=== PATIENT | male | born 1955 | race Caucasian/White ===

== ENCOUNTER 2019-02-09 15:17 | Emergency (ER) | payer BC ==
[~2019-02-09] VITALS: Ht 160 cm; Wt 63.2 kg
[~2019-02-09 15:17] MED LIST: ASPI-1265 PO; ATOR20TA66 PO; BENA20TA76 PO; METO25TA6 PO; NITR0.4T51 SL; TICA90TA PO
[2019-02-09] MEDS ORDERED: morphine 4 MG/ML inj SYRINge IV PRN (15:30)
[2019-02-09] MEDS ORDERED: normal saline 1000ML IV soln IVB ONE ×2 (15:30→15:55)
[2019-02-09] MEDS ORDERED: ondansetron/PF 4mg/2ml inj IV ONE (15:30)
[2019-02-09] MEDS ORDERED: aspirin 81mg tab.chew PO ONE (15:50)
[2019-02-09 15:55] LABS: HEMOGLOBIN 14.3 g/dl (14.0-17.9); MEAN CORPUSCULAR HEMOGLOBIN 34.7 PG (27.0-31.0); RED BLOOD COUNT 4.13 X10'6 (4.70-6.10)
[2019-02-09 15:56] LABS: HEMATOCRIT 41.2 % (42.0-52.0); MEAN CORPUSCULAR HGB CONC 34.8 g/dL (33.0-36.5); MEAN CORPUSCULAR VOLUME 99.8 FL (78-98); MEAN PLATELET VOLUME 7.3 FL (7.4-10.4); PLATELET COUNT 273 X10'3 (140-440); RED CELL DISTRIBUTION WIDTH 14.7 % (11.5-14.5); WHITE BLOOD COUNT 6.4 X10'3 (4.5-11.0)
[2019-02-09 16:08] LABS: PARTIAL THROMBOPLASTIN TIME 25 SECONDS (22-32)
[2019-02-09 16:13] LABS: ALANINE AMINOTRANSFERASE 92 U/L (12-78); ALBUMIN 3.5 G/DL (3.4-5.0); ALKALINE PHOSPHATASE 122 IU/L (46-116); ANION GAP 8 (8-16); ASPARTATE AMINO TRANSFERASE 86 U/L (10-37); BILIRUBIN,TOTAL 0.3 MG/DL (0.1-1.0); BLOOD UREA NITROGEN 3 MG/DL (7-18); CALCIUM 8.2 MG/DL (8.5-10.1); CHLORIDE 109 MMOL/L (99-107); CREATININE 0.75 MG/DL (0.60-1.10); GLUCOSE 84 MG/DL (70-104); POTASSIUM 3.7 MMOL/L (3.5-5.1); SODIUM 147 MMOL/L (135-145); TOTAL CARBON DIOXIDE 30.5 MMOL/L (24-32); TOTAL PROTEIN 7.1 G/DL (6.4-8.2); eGFR > 90 ML/MIN
[2019-02-09 16:17] LABS: LIPASE 282 U/L (73-393)
[2019-02-09 16:44] LABS: PLATELET ESTIMATE NORMAL; TOTAL CELLS COUNTED 100
[2019-02-09 18:16] LABS: CLARITY,URINE CLEAR (Clear); COLOR,URINE YELLOW (Yellow); GLUCOSE, URINE NEGATIVE (Neg); KETONES,URINE NEGATIVE (Neg); LEUKOCYTE ESTERASE ,URINE NEGATIVE (Neg); NITRITES, URINE NEGATIVE (Neg); OCCULT BLOOD,URINE NEGATIVE (Neg); PROTEIN,URINE NEGATIVE (Neg); UA COLLECTION TYPE VOIDED; UROBILINOGEN,URINE 0.2 E.U/dL (0.2-1.0)
[2019-02-09 18:22] VITALS: BP 174/106
== END 2019-02-09 19:27 | disposition home or self-care (01) ==
LOC: ER 15:17
DX: R07.89 Other chest pain (principal); I25.10 Atherosclerotic heart disease of native coronary artery without angina pectoris; E78.00 Pure hypercholesterolemia, unspecified; I10 Essential (primary) hypertension; I25.2 Old myocardial infarction; F17.210 Nicotine dependence, cigarettes, uncomplicated; F10.99 Alcohol use, unspecified with unspecified alcohol-induced disorder; Z98.890 Other specified postprocedural states; Z79.82 Long term (current) use of aspirin; Z79.899 Other long term (current) drug therapy; Y90.9 Presence of alcohol in blood, level not specified
CPT/HCPCS: 36415; 71045; 80053; 81003; 83690; 83880; 84484; 85025; 85610; 85730; 93005; 99284; J7030

== ENCOUNTER 2019-10-06 07:21 | Inpatient (IN) | payer BC ==
[~2019-10-06] VITALS: Ht 167.6 cm; Wt 68.2 kg
[2019-10-06] MEDS ORDERED: ondansetron 4mg rapidly disintigrating tab PO ONE (08:20)
[2019-10-06] MEDS ORDERED: normal saline 1000ML IV soln IVB ONE (08:30)
[2019-10-06] MEDS ORDERED: Potassium Cl inj 20 MEQ, magnesium sulf injection 2 GM, thiamine inj. 100 MG, MVI, adul... IV ONE ×10 (08:42→09:02)
--- NOTE | 2019-10-06 08:44 | NUR ---
PT OUT TO CT VIA MEIR WITH SENIOR SOFTWARE QA ANALYST
[2019-10-06] MEDS ORDERED: ondansetron/PF 4mg/2ml inj IV ONE (08:45)
[2019-10-06] MEDS ORDERED: LORazepam 2 mg/ml vial IV ONE (08:45)
[2019-10-06] MEDS ORDERED: folic acid 1mg/0.2ml inj IV ONE (08:50)
--- NOTE | 2019-10-06 08:56 | NUR ---
PT RETURNS FROM CT
[2019-10-06 08:57] LABS: BASOPHILS % (AUTO) 0.5 % (0-1); EOSINOPHILS % (AUTO) 0 % (0-6); HEMATOCRIT 39.8 % (42.0-52.0); HEMOGLOBIN 13.6 g/dl (14.0-17.9); LYMPHOCYTES # (AUTO) 0.6 X10'3 (1.1-4.8); LYMPHOCYTES % (AUTO) 6.5 % (21-51); MEAN CORPUSCULAR HEMOGLOBIN 34.5 PG (27.0-31.0); MEAN CORPUSCULAR HGB CONC 34.3 g/dL (33.0-36.5); MEAN CORPUSCULAR VOLUME 100.4 FL (78-98); MEAN PLATELET VOLUME 8.5 FL (7.4-10.4); MONOCYTES # (AUTO) 0.6 X10'3 (0-0.9); NEUTROPHILS # (AUTO) 7.7 X10'3 (1.8-7.7); PLATELET COUNT 140 X10'3 (140-440); RED BLOOD COUNT 3.96 X10'6 (4.70-6.10); RED CELL DISTRIBUTION WIDTH 14.3 % (11.5-14.5); WHITE BLOOD COUNT 8.9 X10'3 (4.5-11.0)
[2019-10-06 09:25] LABS: ALANINE AMINOTRANSFERASE 103 U/L (12-78); ALBUMIN 3.9 G/DL (3.4-5.0); ALBUMIN/GLOBULIN RATIO 1.1 (1.1-1.5); ALKALINE PHOSPHATASE 100 IU/L (46-116); ANION GAP 10 (8-16); ASPARTATE AMINO TRANSFERASE 102 U/L (10-37); BILIRUBIN,TOTAL 1.7 MG/DL (0.1-1.0); BLOOD UREA NITROGEN 5 MG/DL (7-18); BUN/CREATININE RATIO 7.1 (5.4-32.0); CHLORIDE 98 MMOL/L (99-107); ETHANOL < 0.010 GM/DL (0.0-0.010); GLUCOSE 128 MG/DL (70-104); SODIUM 137 MMOL/L (135-145); TOTAL CARBON DIOXIDE 29.4 MMOL/L (24-32); TOTAL PROTEIN 7.3 G/DL (6.4-8.2); eGFR > 90 ML/MIN
[2019-10-06 09:27] LABS: POTASSIUM 2.8 MMOL/L (3.5-5.1)
[2019-10-06] MEDS ORDERED: potassium Cl 10 mEq/100mL bag IV ONE (10:00)
[2019-10-06 10:26] LABS: CLARITY,URINE SLIGHTLY CLOUDY (Clear); COLOR,URINE YELLOW (Yellow); GLUCOSE, URINE NEGATIVE (Neg); KETONES,URINE 15 mg/dl (Neg); LEUKOCYTE ESTERASE ,URINE NEGATIVE (Neg); NITRITES, URINE NEGATIVE (Neg); OCCULT BLOOD,URINE NEGATIVE (Neg); PH,URINE 8.5 (4.8-8.0); PROTEIN,URINE TRACE mg/dl (Neg)
[2019-10-06] MEDS ORDERED: potassium CL 10mEq/100ml bag 100 ML IV PRN ×2 (10:30)
[2019-10-06] MEDS ORDERED: LORazepam 1 MG tablet PO PRN ×2 (10:30→21:35)
[2019-10-06] MEDS ORDERED: magnesium 4gm in 100ml NS 100 ML IV PRN (10:30)
[2019-10-06] MEDS ORDERED: morphine 2 MG/ML inj. syringe IV PRN (10:30)
[2019-10-06] MEDS ORDERED: mag hydrox/Alum hydrox/simeth 30ml oral suspension PO PRN (10:30)
[2019-10-06] MEDS ORDERED: acetaminophen 325mg tablet PO PRN ×2 (10:30)
[2019-10-06] MEDS ORDERED: magnesium 2GM in 50ml NS 50 ML IV PRN (10:30)
[2019-10-06] MEDS ORDERED: LORazepam 2 mg/ml vial IV PRN ×2 (10:30→21:35)
[2019-10-06] MEDS ORDERED: HYDROcodone/acetaminophen 5mg/325mg tablet PO PRN (10:30)
[2019-10-06] MEDS ORDERED: ondansetron/PF 4mg/2ml inj IV PRN (10:30)
[2019-10-06] MEDS ORDERED: potassium Cl 20 mEq SR tablet PO PRN (10:30)
[2019-10-06 10:31] LABS: URINE AMPHETAMINE SCREEN NEGATIVE (Neg); URINE BARBITUATE SCREEN NEGATIVE (Neg); URINE BENZODIAZEPINES SCREEN NEGATIVE (Neg); URINE CANNABINOID SCREEN NEGATIVE (Neg); URINE COCAINE SCREEN NEGATIVE (Neg); URINE METHADONE SCREEN NEGATIVE (Neg); URINE OPIATE SCREEN NEGATIVE (Neg); URINE PHENCYCLIDINE SCREEN NEGATIVE (Neg)
[2019-10-06 10:32] LABS: UA COLLECTION TYPE STRAIGHT CATH
[2019-10-06 10:33] LABS: SQUAMOUS EPITHELIAL CELL,UR FEW /LPF (FEW)
[2019-10-06 10:34] LABS: RBC,URINE 0-2 /HPF (0-2); WBC,URINE 0-4 /HPF (0-4)
--- NOTE | 2019-10-06 10:35 | NUR ---
covering for primary nurse srinivasan rn ,pt seen by hospitalist dr londono ,pt not provideing medical inform to the provider as per patric londono she will put in orders,pt receving kcl 10 mEq as per md orders,will cont to monitor.
[2019-10-06 10:36] LABS: BACTERIA,URINE FEW /HPF (Neg)
[2019-10-06 10:56] LABS: LIPASE 164 U/L (73-393)
[2019-10-06] MEDS: normal saline 1000ml 1,000 ML IV SCH ×2 (11:39→20:30)
--- NOTE | 2019-10-06 12:00 | NUR ---
1ST ATTEMPT TO CALL REPORT, RN UNAVAILABLE WILL RETURN CALL.
--- NOTE | 2019-10-06 12:30 | NUR ---
Patient in room ED 7. I have received report from Payton and had the opportunity to ask questions and assume patient care.
[2019-10-06] MEDS ORDERED: LISI10TA4 PO (12:34)
[2019-10-06] MEDS ORDERED: ATOR20TA66 PO (12:35)
--- NOTE | 2019-10-06 13:05 | NUR ---
Pt arrived on the floor, skin check, swab and vitals done
[2019-10-06 13:10] VITALS: BP 136/90
--- NOTE | 2019-10-06 15:19 | NUR ---
Per MRI staff, pt too confused, flailing arms around to complete MRI
--- NOTE | 2019-10-06 15:43 | NUR ---
PAGER ID: [phone] MESSAGE: Clau santos on ortho, are you able to call me regarding Mr. Murdock in 4009A? thank you
--- NOTE | 2019-10-06 16:45 | NUR ---
Pt currently having EEG, has been refusing the application of the leads, needs redirection with non-compliance
--- NOTE | 2019-10-06 16:56 | NUR ---
PAGER ID: [phone] MESSAGE: Clau Modi on ortho, Mr. Murdock in 4009A has potassium of 2.8, 30 mEq replaced in the ED, please advise, thank you
[2019-10-06] MEDS ORDERED: potassium Cl 20 mEq SR tablet PO STA (16:58)
[2019-10-06] MEDS ORDERED: POTASSIUM BICARB 20meq eff tab 20 MEQ TABLET.EFF PO STA (17:03)
[2019-10-06 18:00] VITALS: BP 151/94
--- NOTE | 2019-10-06 18:19 | NUR ---
Problems reprioritized. Patient report given, questions answered & plan of care reviewed with Kate.
--- NOTE | 2019-10-06 18:24 | NUR ---
Patient in room ORTHO 4010. I have received report from Clau CHONG and had the opportunity to ask questions and assume patient care.
[2019-10-06] MEDS: heparin, porcine 5000 units/ml vial SQ SCH (19:10)
[2019-10-06] MEDS: K and/or MAG REPLACEMENT MC SCH (19:13)
[2019-10-06 22:00] VITALS: BP 143/87
--- NOTE | 2019-10-06 23:20 | NUR ---
Patient trying to jump out of bed multiple times. Patient pulling at new IV line. Patient very confused and impulsive. Sitter order obtained.
[2019-10-07] MEDS: LORazepam 2 mg/ml vial IV PRN ×5 (01:34→22:34)
[2019-10-07 02:00] VITALS: BP 126/56
[2019-10-07] MEDS: normal saline 1000ml 1,000 ML IV SCH ×3 (03:32→22:30)
[2019-10-07 06:31] LABS: BASOPHILS % (AUTO) 0.6 % (0-1); EOSINOPHILS # (AUTO) 0.1 X10'3 (0-0.9); EOSINOPHILS % (AUTO) 0.9 % (0-6); HEMATOCRIT 36.2 % (42.0-52.0); HEMOGLOBIN 12.4 g/dl (14.0-17.9); MEAN CORPUSCULAR HEMOGLOBIN 34.5 PG (27.0-31.0); MEAN CORPUSCULAR HGB CONC 34.2 g/dL (33.0-36.5); MEAN PLATELET VOLUME 9.2 FL (7.4-10.4); MONOCYTES # (AUTO) 0.5 X10'3 (0-0.9); MONOCYTES % (AUTO) 8.4 % (2-12); NEUTROPHILS # (AUTO) 3.9 X10'3 (1.8-7.7); NEUTROPHILS % (AUTO) 60.1 % (42-75); PLATELET COUNT 102 X10'3 (140-440); RED BLOOD COUNT 3.58 X10'6 (4.70-6.10); WHITE BLOOD COUNT 6.6 X10'3 (4.5-11.0)
--- NOTE | 2019-10-07 06:31 | NUR ---
Problems reprioritized. Patient report given, questions answered & plan of care reviewed with Clau CHONG.
--- NOTE | 2019-10-07 06:41 | NUR ---
Patient in room ORTHO 4008. I have received report from [facility] and had the opportunity to ask questions and assume patient care.
[2019-10-07 06:44] LABS: ALANINE AMINOTRANSFERASE 75 U/L (12-78); ALBUMIN 3.2 G/DL (3.4-5.0); ALKALINE PHOSPHATASE 85 IU/L (46-116); ANION GAP 9 (8-16); ASPARTATE AMINO TRANSFERASE 80 U/L (10-37); BILIRUBIN,TOTAL 1.2 MG/DL (0.1-1.0); BLOOD UREA NITROGEN 4 MG/DL (7-18); CALCIUM 8.4 MG/DL (8.5-10.1); CHLORIDE 102 MMOL/L (99-107); CREATININE 0.57 MG/DL (0.60-1.10); GLUCOSE 68 MG/DL (70-104); MAGNESIUM 1.5 MG/DL (1.5-2.4); POTASSIUM 3.2 MMOL/L (3.5-5.1); SODIUM 139 MMOL/L (135-145); TOTAL PROTEIN 6.4 G/DL (6.4-8.2); eGFR > 90 ML/MIN
--- NOTE | 2019-10-07 07:09 | NUR ---
PAGER ID: [phone] MESSAGE: Clau santos on ortho, Mr. Murdock in 2628 has critical blood sugar of 66, please advise
--- NOTE | 2019-10-07 07:53 | NUR ---
PAGER ID: [phone] MESSAGE: Marcie Spann3 re Lamin Murdock in 6853- his BS is still 65 after drinking an orange juice. Would you like to add hypoglycemic protocol? please advise, thanks
[2019-10-07] MEDS: nicotine 14mg patch - 24hr TD SCH (08:00)
[2019-10-07] MEDS: K and/or MAG REPLACEMENT MC SCH ×2 (08:00→19:56)
[2019-10-07] MEDS ORDERED: dextrose ORAL solution 15 GM/59 ML bottle PO PRN ×2 (08:20)
[2019-10-07] MEDS ORDERED: dextrose 50%-water 50ml dispensing syringe IV PRN ×2 (08:20)
[2019-10-07] MEDS ORDERED: glucagon, human recombinant 1mg kit SUBCUT PRN (08:20)
[2019-10-07] MEDS: atorvastatin 20mg tablet PO SCH (08:35)
[2019-10-07] MEDS: lisinopril 10 MG tablet PO SCH (08:38)
[2019-10-07] MEDS: heparin, porcine 5000 units/ml vial SQ SCH ×2 (08:38→19:58)
[2019-10-07] MEDS: potassium Cl 20 mEq SR tablet PO PRN ×3 (08:39→19:58)
[2019-10-07 10:00] VITALS: BP 120/79
--- NOTE | 2019-10-07 16:52 | NUR ---
called admitting to request pt's belongings be stored in the safe, per pt's , advised not enough staff to retrieve belongings now and will send someone up as soon as staff is available
[2019-10-07 18:00] VITALS: BP 156/93
--- NOTE | 2019-10-07 18:13 | NUR ---
Problems reprioritized. Patient report given, questions answered & plan of care reviewed with Amarilis/Kate.
--- NOTE | 2019-10-07 18:46 | NUR ---
Patient in room ORTHO 4008. I have received report from Clau CHONG and had the opportunity to ask questions and assume patient care.
[2019-10-07 22:00] VITALS: BP 149/94
[2019-10-08 02:00] VITALS: BP 159/96
[2019-10-08] MEDS: LORazepam 2 mg/ml vial IV PRN ×3 (03:29→10:30)
[2019-10-08 06:00] VITALS: BP 163/104
--- NOTE | 2019-10-08 06:27 | NUR ---
Problems reprioritized. Patient report given, questions answered & plan of care reviewed with Abbey CHONG.
[2019-10-08 06:33] LABS: BASOPHILS # (AUTO) 0.1 X10'3 (0-0.2); BASOPHILS % (AUTO) 0.8 % (0-1); EOSINOPHILS # (AUTO) 0.1 X10'3 (0-0.9); EOSINOPHILS % (AUTO) 1.1 % (0-6); HEMATOCRIT 36.4 % (42.0-52.0); HEMOGLOBIN 12.5 g/dl (14.0-17.9); LYMPHOCYTES # (AUTO) 2.5 X10'3 (1.1-4.8); LYMPHOCYTES % (AUTO) 29.9 % (21-51); MEAN CORPUSCULAR HEMOGLOBIN 34.4 PG (27.0-31.0); MEAN CORPUSCULAR HGB CONC 34.3 g/dL (33.0-36.5); MEAN CORPUSCULAR VOLUME 100.5 FL (78-98); MEAN PLATELET VOLUME 9.5 FL (7.4-10.4); MONOCYTES # (AUTO) 0.8 X10'3 (0-0.9); MONOCYTES % (AUTO) 10.2 % (2-12); NEUTROPHILS # (AUTO) 4.8 X10'3 (1.8-7.7); PLATELET COUNT 97 X10'3 (140-440); RED BLOOD COUNT 3.62 X10'6 (4.70-6.10); RED CELL DISTRIBUTION WIDTH 13.8 % (11.5-14.5); WHITE BLOOD COUNT 8.3 X10'3 (4.5-11.0)
[2019-10-08 06:39] LABS: ALANINE AMINOTRANSFERASE 78 U/L (12-78); ALBUMIN 3.3 G/DL (3.4-5.0); ALKALINE PHOSPHATASE 86 IU/L (46-116); ANION GAP 11 (8-16); ASPARTATE AMINO TRANSFERASE 83 U/L (10-37); BLOOD UREA NITROGEN 3 MG/DL (7-18); BUN/CREATININE RATIO 5.9 (5.4-32.0); CALCIUM 8.8 MG/DL (8.5-10.1); CHLORIDE 102 MMOL/L (99-107); CREATININE 0.51 MG/DL (0.60-1.10); GLUCOSE 78 MG/DL (70-104); MAGNESIUM 1.2 MG/DL (1.5-2.4); POTASSIUM 3.6 MMOL/L (3.5-5.1); SODIUM 137 MMOL/L (135-145); TOTAL CARBON DIOXIDE 24.4 MMOL/L (24-32); TOTAL PROTEIN 6.6 G/DL (6.4-8.2); eGFR > 90 ML/MIN
[2019-10-08] MEDS: K and/or MAG REPLACEMENT MC SCH ×2 (08:00→19:05)
[2019-10-08] MEDS: atorvastatin 20mg tablet PO SCH (08:22)
[2019-10-08] MEDS: heparin, porcine 5000 units/ml vial SQ SCH ×2 (08:23→19:05)
[2019-10-08] MEDS: lisinopril 10 MG tablet PO SCH (08:23)
[2019-10-08] MEDS: nicotine 14mg patch - 24hr TD SCH (08:25)
[2019-10-08] MEDS: normal saline 1000ml 1,000 ML IV SCH (08:40)
[2019-10-08 10:00] VITALS: BP 130/82
[2019-10-08] MEDS ORDERED: LORazepam 2 mg/ml vial IV PRN (11:20)
[2019-10-08] MEDS: ciprofloxacin 0.3% 2.5ml ophthalmic solution EACHEYE SCH ×4 (12:00→23:17)
[2019-10-08] MEDS ORDERED: LORazepam 2 mg/ml vial IV STA (12:32)
[2019-10-08 15:00] VITALS: BP 130/82
[2019-10-08 18:00] VITALS: BP 169/103
--- NOTE | 2019-10-08 18:20 | NUR ---
Patient in room ORTHO 4008. I have received report from Antonieta CHONG and had the opportunity to ask questions and assume patient care.
--- NOTE | 2019-10-08 18:57 | NUR ---
Problems reprioritized. Patient report given, questions answered & plan of care reviewed with Belen CHONG.
[2019-10-08] MEDS: magnesium Cl slow-release 64mg tablet PO PRN (19:04)
[2019-10-08] MEDS: LORazepam 1 MG tablet PO PRN ×2 (19:14→23:02)
[2019-10-08 22:00] VITALS: BP 155/101
[2019-10-09] MEDS: normal saline 1000ml 1,000 ML IV SCH ×2 (02:27→17:05)
[2019-10-09] MEDS: LORazepam 1 MG tablet PO PRN ×3 (02:33→14:19)
[2019-10-09] MEDS: ciprofloxacin 0.3% 2.5ml ophthalmic solution EACHEYE SCH ×6 (04:00→23:43)
--- NOTE | 2019-10-09 06:24 | NUR ---
Patient in room ORTHO 4006. I have received report from Lindsey CHONG and had the opportunity to ask questions and assume patient care. Addendum: 10/09/19 at 0626 by Danica Gates RN Room 4001I
--- NOTE | 2019-10-09 06:27 | NUR ---
Problems reprioritized. Patient report given, questions answered & plan of care reviewed with Danica CHONG.
[2019-10-09] MEDS: lisinopril 10 MG tablet PO SCH (07:12)
[2019-10-09] MEDS: atorvastatin 20mg tablet PO SCH (07:12)
[2019-10-09] MEDS: nicotine 14mg patch - 24hr TD SCH (07:13)
[2019-10-09] MEDS: heparin, porcine 5000 units/ml vial SQ SCH ×2 (07:14→19:00)
[2019-10-09 07:19] VITALS: BP 156/95
[2019-10-09 07:40] LABS: BASOPHILS # (AUTO) 0.1 X10'3 (0-0.2); BASOPHILS % (AUTO) 0.9 % (0-1); EOSINOPHILS # (AUTO) 0.1 X10'3 (0-0.9); EOSINOPHILS % (AUTO) 1.2 % (0-6); HEMOGLOBIN 12.6 g/dl (14.0-17.9); LYMPHOCYTES # (AUTO) 1.8 X10'3 (1.1-4.8); LYMPHOCYTES % (AUTO) 27.9 % (21-51); MEAN CORPUSCULAR HEMOGLOBIN 34.1 PG (27.0-31.0); MEAN CORPUSCULAR VOLUME 100.4 FL (78-98); MEAN PLATELET VOLUME 8.7 FL (7.4-10.4); MONOCYTES # (AUTO) 0.8 X10'3 (0-0.9); MONOCYTES % (AUTO) 12.8 % (2-12); NEUTROPHILS # (AUTO) 3.6 X10'3 (1.8-7.7); NEUTROPHILS % (AUTO) 57.2 % (42-75); PLATELET COUNT 110 X10'3 (140-440); RED BLOOD COUNT 3.69 X10'6 (4.70-6.10); RED CELL DISTRIBUTION WIDTH 13.9 % (11.5-14.5); WHITE BLOOD COUNT 6.3 X10'3 (4.5-11.0)
[2019-10-09 07:43] LABS: ALANINE AMINOTRANSFERASE 82 U/L (12-78); ALBUMIN 3.4 G/DL (3.4-5.0); ALKALINE PHOSPHATASE 85 IU/L (46-116); ANION GAP 14 (8-16); ASPARTATE AMINO TRANSFERASE 82 U/L (10-37); BLOOD UREA NITROGEN 5 MG/DL (7-18); BUN/CREATININE RATIO 9.8 (5.4-32.0); CALCIUM 8.9 MG/DL (8.5-10.1); CHLORIDE 102 MMOL/L (99-107); CREATININE 0.51 MG/DL (0.60-1.10); GLUCOSE 75 MG/DL (70-104); MAGNESIUM 1.2 MG/DL (1.5-2.4); POTASSIUM 3.1 MMOL/L (3.5-5.1); SODIUM 138 MMOL/L (135-145); TOTAL CARBON DIOXIDE 22.3 MMOL/L (24-32); TOTAL PROTEIN 6.9 G/DL (6.4-8.2); eGFR > 90 ML/MIN
[2019-10-09] MEDS: K and/or MAG REPLACEMENT MC SCH ×3 (08:00→19:00)
[2019-10-09] MEDS: magnesium Cl slow-release 64mg tablet PO PRN (08:54)
--- NOTE | 2019-10-09 12:16 | NUR ---
Order to DC tele given by Dr. Ruff
--- NOTE | 2019-10-09 15:38 | NUR ---
called about getting all of patients medical information over the phone. Patients was told we are unable to give the patients medical information do to HIPPA, patients yelled "well F you then" and hung up the phone.
--- NOTE | 2019-10-09 17:25 | NUR ---
Patient eating a sandwich and drinking milk while sitting up in the ortho chair in the hallway.
[2019-10-09] MEDS ORDERED: potassium Cl 20 mEq SR tablet PO PRN ×2 (17:50)
[2019-10-09] MEDS ORDERED: magnesium Cl slow-release 64mg tablet PO PRN (17:50)
[2019-10-09] MEDS ORDERED: magnesium 4gm in 100ml NS 100 ML IV PRN (17:50)
[2019-10-09] MEDS ORDERED: potassium CL 10mEq/100ml bag 100 ML IV PRN (17:50)
--- NOTE | 2019-10-09 18:01 | NUR ---
Problems reprioritized. Patient report given, questions answered & plan of care reviewed with Lindsey CHONG.
[2019-10-09 22:00] VITALS: BP 140/95
[2019-10-10] MEDS: normal saline 1000ml 1,000 ML IV SCH (00:15)
[2019-10-10] MEDS: ciprofloxacin 0.3% 2.5ml ophthalmic solution EACHEYE SCH ×3 (04:00→12:00)
[2019-10-10 06:00] VITALS: BP 136/82
--- NOTE | 2019-10-10 06:03 | NUR ---
Problems reprioritized. Patient report given, questions answered & plan of care reviewed with Payton CHONG.
[2019-10-10] MEDS: heparin, porcine 5000 units/ml vial SQ SCH (08:00)
[2019-10-10] MEDS: lisinopril 10 MG tablet PO SCH (08:00)
[2019-10-10] MEDS: K and/or MAG REPLACEMENT MC SCH ×2 (08:00)
[2019-10-10] MEDS ORDERED: thiamine inj. 100 MG, magnesium sulf injection 2 GM, MVI, adult No.4 with vit. K 10 ML ... IV SCH ×4 (08:00)
[2019-10-10] MEDS: atorvastatin 20mg tablet PO SCH (08:00)
[2019-10-10] MEDS: nicotine 14mg patch - 24hr TD SCH (08:00)
[2019-10-10 10:00] VITALS: BP 141/90
[2019-10-10 10:06] LABS: BASOPHILS # (AUTO) 0.1 X10'3 (0-0.2); BASOPHILS % (AUTO) 0.9 % (0-1); EOSINOPHILS # (AUTO) 0.2 X10'3 (0-0.9); EOSINOPHILS % (AUTO) 3.2 % (0-6); HEMATOCRIT 34.6 % (42.0-52.0); HEMOGLOBIN 11.9 g/dl (14.0-17.9); LYMPHOCYTES # (AUTO) 1.4 X10'3 (1.1-4.8); LYMPHOCYTES % (AUTO) 22.3 % (21-51); MEAN CORPUSCULAR HEMOGLOBIN 34.7 PG (27.0-31.0); MEAN CORPUSCULAR HGB CONC 34.2 g/dL (33.0-36.5); MEAN CORPUSCULAR VOLUME 101.3 FL (78-98); MEAN PLATELET VOLUME 8.7 FL (7.4-10.4); MONOCYTES # (AUTO) 0.9 X10'3 (0-0.9); MONOCYTES % (AUTO) 14.2 % (2-12); NEUTROPHILS # (AUTO) 3.8 X10'3 (1.8-7.7); NEUTROPHILS % (AUTO) 59.4 % (42-75); PLATELET COUNT 124 X10'3 (140-440); RED BLOOD COUNT 3.42 X10'6 (4.70-6.10); WHITE BLOOD COUNT 6.4 X10'3 (4.5-11.0)
[2019-10-10 10:18] LABS: ALANINE AMINOTRANSFERASE 82 U/L (12-78); ALBUMIN 2.8 G/DL (3.4-5.0); ALBUMIN/GLOBULIN RATIO 0.9 (1.1-1.5); ALKALINE PHOSPHATASE 76 IU/L (46-116); ANION GAP 10 (8-16); ASPARTATE AMINO TRANSFERASE 69 U/L (10-37); BILIRUBIN,TOTAL 0.9 MG/DL (0.1-1.0); BLOOD UREA NITROGEN 10 MG/DL (7-18); BUN/CREATININE RATIO 17.9 (5.4-32.0); CALCIUM 8.4 MG/DL (8.5-10.1); CHLORIDE 105 MMOL/L (99-107); CREATININE 0.56 MG/DL (0.60-1.10); GLUCOSE 90 MG/DL (70-104); MAGNESIUM 1.3 MG/DL (1.5-2.4); POTASSIUM 3.5 MMOL/L (3.5-5.1); SODIUM 139 MMOL/L (135-145); TOTAL CARBON DIOXIDE 24.4 MMOL/L (24-32); eGFR > 90 ML/MIN
== END 2019-10-10 16:00 | disposition home or self-care (01) | DRG 101 ==
LOC: ER 07:21 → ED HOLD 10:30 → ORTHO 4S 12:58
PROVIDERS: ADMIT Internal Medicine; ATTEND Internal Medicine
PROC: 4A10X4Z Monitoring of Central Nervous Electrical Activity, External Approach (ICD-10-PCS; principal; 2019-10-06)
DX: R56.9 Unspecified convulsions (principal); E78.00 Pure hypercholesterolemia, unspecified; E78.5 Hyperlipidemia, unspecified; E87.6 Hypokalemia; E83.42 Hypomagnesemia; F17.200 Nicotine dependence, unspecified, uncomplicated; I10 Essential (primary) hypertension; I25.10 Atherosclerotic heart disease of native coronary artery without angina pectoris; I25.2 Old myocardial infarction; Z95.5 Presence of coronary angioplasty implant and graft; Z79.899 Other long term (current) drug therapy; Z72.89 Other problems related to lifestyle
CPT/HCPCS: 36415; 70450; 70551; 71045; 80053; 80305; 80320; 81001; 82140; 82948; 83605; 83690; 83735; 84132; 84443; 85025; 85610; 87040; 87081; 95816; 97110; 97116; 97162; 97530; 99285; G0378; J1644; J2060; J2405; J3411; J3475; J3480; J3490; J7030; J7060

== ENCOUNTER 2020-03-20 20:19 | Emergency (ER) | payer BC ==
[~2020-03-20] VITALS: Ht 165.1 cm; Wt 50.0 kg
[~2020-03-20 20:19] MED LIST changes: -ASPI-1265 PO; -BENA20TA76 PO; +LISI10TA4 PO; -METO25TA6 PO; -NITR0.4T51 SL; -TICA90TA PO
[2020-03-20] MEDS ORDERED: normal saline 1000ML IV soln IV ONE (20:35)
--- NOTE | 2020-03-20 20:36 | NUR ---
PT WITH CONFUSION, LEVEL II STROKE ALERT CALLED
[2020-03-20] MEDS ORDERED: LIDOcaine 2% 10ml TOPICAL JELLY (Urojet) MM ONE (20:45)
--- NOTE | 2020-03-20 20:51 | NUR ---
PT'S , SHAZIA KOEHLER CALLED AND WANTS AN UPDATE.
[2020-03-20 20:52] LABS: BASOPHILS # (AUTO) 0.1 X10'3 (0-0.2); BASOPHILS % (AUTO) 0.8 % (0-1); EOSINOPHILS % (AUTO) 0.1 % (0-6); HEMATOCRIT 39.5 % (42.0-52.0); HEMOGLOBIN 13.5 g/dl (14.0-17.9); LYMPHOCYTES # (AUTO) 1.2 X10'3 (1.1-4.8); LYMPHOCYTES % (AUTO) 18.1 % (21-51); MEAN CORPUSCULAR HEMOGLOBIN 34.3 PG (27.0-31.0); MEAN CORPUSCULAR HGB CONC 34.2 g/dL (33.0-36.5); MEAN CORPUSCULAR VOLUME 100.2 FL (78-98); MEAN PLATELET VOLUME 9.5 FL (7.4-10.4); MONOCYTES # (AUTO) 0.7 X10'3 (0-0.9); MONOCYTES % (AUTO) 10.8 % (2-12); NEUTROPHILS # (AUTO) 4.7 X10'3 (1.8-7.7); NEUTROPHILS % (AUTO) 70.2 % (42-75); PLATELET COUNT 86 X10'3 (140-440); RED BLOOD COUNT 3.95 X10'6 (4.70-6.10); RED CELL DISTRIBUTION WIDTH 14.4 % (11.5-14.5); WHITE BLOOD COUNT 6.6 X10'3 (4.5-11.0)
[2020-03-20 21:05] LABS: ANION GAP 20 (8-16); BILIRUBIN,TOTAL 1.7 MG/DL (0.1-1.0); BLOOD UREA NITROGEN 9 MG/DL (7-18); BUN/CREATININE RATIO 12.3 (5.4-32.0); CALCIUM 8.7 MG/DL (8.5-10.1); CHLORIDE 95 MMOL/L (99-107); CREATININE 0.73 MG/DL (0.60-1.10); GLUCOSE 103 MG/DL (70-104); SODIUM 138 MMOL/L (135-145); TOTAL CARBON DIOXIDE 22.7 MMOL/L (24-32); eGFR > 90 ML/MIN
[2020-03-20 21:06] LABS: ALANINE AMINOTRANSFERASE 67 U/L (12-78); ALBUMIN 3.9 G/DL (3.4-5.0); ALBUMIN/GLOBULIN RATIO 1.1 (1.1-1.5); ALKALINE PHOSPHATASE 103 IU/L (46-116); ASPARTATE AMINO TRANSFERASE 90 U/L (10-37); ETHANOL < 0.010 GM/DL (0.0-0.010); TOTAL PROTEIN 7.5 G/DL (6.4-8.2)
[2020-03-20] MEDS ORDERED: labetalol 20mg/4ml (5mg/ml) syringe IV ONE (21:15)
--- NOTE | 2020-03-20 21:16 | NUR ---
FLUIDS STOPPED AT THIS TIME PER PA
[2020-03-20] MEDS ORDERED: potassium Cl 10 mEq/100mL bag IV ONE (21:20)
--- NOTE | 2020-03-20 21:26 | NUR ---
TELE NEURO CONSULT HAS BEEN DONE
[2020-03-20 21:27] LABS: CLARITY,URINE CLEAR (Clear); COLOR,URINE ORANGE (Yellow); GLUCOSE, URINE NEGATIVE (Neg); KETONES,URINE >=80 mg/dl (Neg); LEUKOCYTE ESTERASE ,URINE NEGATIVE (Neg); NITRITES, URINE NEGATIVE (Neg); OCCULT BLOOD,URINE LARGE (Neg); PROTEIN,URINE 30 mg/dl (Neg)
[2020-03-20 21:31] LABS: URINE AMPHETAMINE SCREEN NEGATIVE (Neg); URINE BARBITUATE SCREEN NEGATIVE (Neg); URINE BENZODIAZEPINES SCREEN NEGATIVE (Neg); URINE CANNABINOID SCREEN NEGATIVE (Neg); URINE COCAINE SCREEN NEGATIVE (Neg); URINE METHADONE SCREEN NEGATIVE (Neg); URINE OPIATE SCREEN NEGATIVE (Neg); URINE PHENCYCLIDINE SCREEN NEGATIVE (Neg)
[2020-03-20] MEDS ORDERED: levetiracetam inj 1,000 MG in normal saline 100ml IV soln 90 ML IV STA (21:31)
[2020-03-20] MEDS ORDERED: Levetiracetam-NS 500mg/100ml 100 ML IV STA (21:37)
[2020-03-20] MEDS ORDERED: levetiracetam-NS 1000mg/100ml 100 ML IV STA (21:38)
[2020-03-20 21:40] LABS: UA COLLECTION TYPE STRAIGHT CATH
[2020-03-20 21:41] LABS: RBC,URINE 50-100 /HPF (0-2)
[2020-03-20 21:42] LABS: SQUAMOUS EPITHELIAL CELL,UR FEW /LPF (FEW); TRANSITIONAL EPI CELLS,URINE FEW /HPF
[2020-03-20 21:45] LABS: FINE GRANULAR CAST 0-3 /LPF (NEGATIVE)
[2020-03-20 21:47] LABS: BACTERIA,URINE FEW /HPF (Neg)
[2020-03-20 21:57] VITALS: BP 150/100
== END 2020-03-20 21:53 | disposition short-term general hospital (02) ==
LOC: ER 20:19
DX: S06.300A Unspecified focal traumatic brain injury without loss of consciousness, initial encounter (principal); Z20.822 Contact with and (suspected) exposure to COVID-19; S06.2X0A Diffuse traumatic brain injury without loss of consciousness, initial encounter; G93.40 Encephalopathy, unspecified; R29.6 Repeated falls; I25.10 Atherosclerotic heart disease of native coronary artery without angina pectoris; E78.00 Pure hypercholesterolemia, unspecified; I10 Essential (primary) hypertension; Z72.89 Other problems related to lifestyle; Z98.61 Coronary angioplasty status; Z88.8 Allergy status to other drugs, medicaments and biological substances; Z79.899 Other long term (current) drug therapy; W19.XXXA Unspecified fall, initial encounter; Y93.89 Activity, other specified; Z91.81 History of falling; Y92.091 Bathroom in other non-institutional residence as the place of occurrence of the external cause; Y99.8 Other external cause status
CPT/HCPCS: 36415; 70450; 71045; 80053; 80305; 80320; 81001; 82140; 82948; 83605; 84145; 85025; 85610; 87040; 87088; 87635; 93005; 96361; 96374; 96375; 99291; C9803; J1953; J3480; J7030; 96365; J3490

== ENCOUNTER 2022-03-29 01:17 | Emergency (ER) | payer BC, MEDICARE ==
[~2022-03-29] VITALS: Ht 165.1 cm; Wt 66.4 kg
[~2022-03-29 01:17] MED LIST changes: +LISI10TA27 PO; -LISI10TA4 PO
[2022-03-29] MEDS ORDERED: thiamine 100mg/ml 2ml inj. IV ONE (01:35)
[2022-03-29] MEDS ORDERED: normal saline 1000ML IV soln IVB ONE (01:35)
[2022-03-29 01:52] LABS: BASOPHILS # (AUTO) 0.1 X10'3 (0-0.2); BASOPHILS % (AUTO) 0.9 % (0-1); EOSINOPHILS # (AUTO) 0.1 X10'3 (0-0.9); EOSINOPHILS % (AUTO) 1.8 % (0-6); HEMATOCRIT 29.4 % (42.0-52.0); HEMOGLOBIN 10.3 g/dl (14.0-17.9); LYMPHOCYTES # (AUTO) 2.2 X10'3 (1.1-4.8); LYMPHOCYTES % (AUTO) 34.7 % (21-51); MEAN CORPUSCULAR HEMOGLOBIN 36.3 PG (27.0-31.0); MEAN CORPUSCULAR VOLUME 103.6 FL (78-98); MEAN PLATELET VOLUME 8.8 FL (7.4-10.4); MONOCYTES # (AUTO) 0.8 X10'3 (0-0.9); NEUTROPHILS # (AUTO) 3.2 X10'3 (1.8-7.7); NEUTROPHILS % (AUTO) 50.6 % (42-75); PLATELET COUNT 128 X10'3 (140-440); RED BLOOD COUNT 2.84 X10'6 (4.70-6.10); RED CELL DISTRIBUTION WIDTH 13.3 % (11.5-14.5); WHITE BLOOD COUNT 6.4 X10'3 (4.5-11.0)
[2022-03-29] MEDS ORDERED: CARV-50 PO (02:10)
[2022-03-29] MEDS ORDERED: LEVE500T99 PO (02:10)
[2022-03-29] MEDS ORDERED: BACL-11 PO (02:11)
[2022-03-29] MEDS ORDERED: LISI40TA13 PO (02:11)
[2022-03-29 02:22] LABS: ANION GAP 15 (8-16); CHLORIDE 91 MMOL/L (99-107); GLUCOSE 85 MG/DL (70-104); SODIUM 133 MMOL/L (135-145); TOTAL CARBON DIOXIDE 26.9 MMOL/L (24-32)
[2022-03-29 02:23] LABS: ALANINE AMINOTRANSFERASE 76 U/L (12-78); ALKALINE PHOSPHATASE 114 IU/L (46-116); ASPARTATE AMINO TRANSFERASE 165 U/L (10-37); BILIRUBIN,TOTAL 0.7 MG/DL (0.1-1.0); BLOOD UREA NITROGEN 10 MG/DL (7-18); BUN/CREATININE RATIO 13.2 (5.4-32.0); CALCIUM 7.9 MG/DL (8.5-10.1); CREATININE 0.76 MG/DL (0.60-1.10); MAGNESIUM 1.3 MG/DL (1.5-2.4); TOTAL PROTEIN 6.1 G/DL (6.4-8.2); eGFR > 90 ML/MIN
[2022-03-29 02:24] LABS: POTASSIUM 2.4 MMOL/L (3.5-5.1)
[2022-03-29] MEDS ORDERED: potassium Cl 20 mEq SR tablet PO ONE (02:30)
[2022-03-29] MEDS ORDERED: magnesium 4gm in 100ml NS 100 ML IV ONE (02:30)
[2022-03-29] MEDS ORDERED: ondansetron/PF 4mg/2ml inj IM ONE (02:30)
[2022-03-29] MEDS: potassium CL 10mEq/100ml bag 100 ML IV SCH ×3 (02:59→04:54)
[2022-03-29] MEDS ORDERED: ondansetron/PF 4mg/2ml inj IV ONE (03:30)
[2022-03-29 07:25] VITALS: BP 103/71
== END 2022-03-29 07:29 | disposition home or self-care (01) ==
LOC: ER 01:18
DX: R55 Syncope and collapse (principal); F10.129 Alcohol abuse with intoxication, unspecified; I25.10 Atherosclerotic heart disease of native coronary artery without angina pectoris; E78.00 Pure hypercholesterolemia, unspecified; I10 Essential (primary) hypertension; I25.2 Old myocardial infarction; Z95.5 Presence of coronary angioplasty implant and graft; Z88.8 Allergy status to other drugs, medicaments and biological substances; Z79.899 Other long term (current) drug therapy; Y90.9 Presence of alcohol in blood, level not specified
CPT/HCPCS: 36415; 70450; 71045; 80053; 80320; 83735; 83880; 84484; 85025; 93005; 96361; 96365; 96375; 99285; J2405; J3411; J3475; J3480; J7030

== ENCOUNTER 2022-10-29 12:32 | Emergency (ER) | payer MEDICARE ==
[~2022-10-29] VITALS: Ht 160 cm; Wt 68.1 kg
[~2022-10-29 12:32] MED LIST changes: +BACL10TA2 PO; +CARV25TA3 PO; +CHOL100025 PO; +FOLI1TAB27 PO; +LEVE750T PO; -LISI10TA27 PO; +LISI40TA13 PO; +LORA-268 PO; +MULT-25 PO; +NALT50TA PO; +NICO-631 TD; +THIA100T70 PO
[2022-10-29 12:55] LABS: BASOPHILS # (AUTO) 0.1 X10'3 (0-0.2); BASOPHILS % (AUTO) 1.1 % (0-1); EOSINOPHILS # (AUTO) 0.1 X10'3 (0-0.9); EOSINOPHILS % (AUTO) 1.5 % (0-6); HEMATOCRIT 35.5 % (42.0-52.0); HEMOGLOBIN 11.9 g/dl (14.0-17.9); LYMPHOCYTES # (AUTO) 1.7 X10'3 (1.1-4.8); MEAN CORPUSCULAR HEMOGLOBIN 35.8 PG (27.0-31.0); MEAN CORPUSCULAR HGB CONC 33.6 g/dL (33.0-36.5); MEAN CORPUSCULAR VOLUME 106.8 FL (78-98); MEAN PLATELET VOLUME 8.5 FL (7.4-10.4); MONOCYTES # (AUTO) 0.5 X10'3 (0-0.9); MONOCYTES % (AUTO) 7.9 % (2-12); NEUTROPHILS # (AUTO) 4.2 X10'3 (1.8-7.7); NEUTROPHILS % (AUTO) 63.5 % (42-75); PLATELET COUNT 158 X10'3 (140-440); RED BLOOD COUNT 3.33 X10'6 (4.70-6.10); RED CELL DISTRIBUTION WIDTH 14.2 % (11.5-14.5); WHITE BLOOD COUNT 6.6 X10'3 (4.5-11.0)
[2022-10-29 13:18] LABS: ALANINE AMINOTRANSFERASE 44 U/L (12-78); ALBUMIN 2.7 G/DL (3.4-5.0); ALBUMIN/GLOBULIN RATIO 0.6 (1.1-1.5); ALKALINE PHOSPHATASE 163 IU/L (46-116); ANION GAP 9 (8-16); ASPARTATE AMINO TRANSFERASE 116 U/L (10-37); BILIRUBIN,TOTAL 1.9 MG/DL (0.1-1.0); BLOOD UREA NITROGEN 5 MG/DL (7-18); CALCIUM 8.5 MG/DL (8.5-10.1); CHLORIDE 94 MMOL/L (99-107); CREATININE 0.71 MG/DL (0.60-1.10); GLUCOSE 110 MG/DL (70-104); POTASSIUM 3.7 MMOL/L (3.5-5.1); SODIUM 131 MMOL/L (135-145); TOTAL CARBON DIOXIDE 28.3 MMOL/L (24-32); TOTAL PROTEIN 6.9 G/DL (6.4-8.2); eCRCL 81 ML/MIN; eGFR > 90 ML/MIN
[2022-10-29 13:26] LABS: PRO BRAIN NATRIURETIC PEPTIDE 1389 PG/ML (0-125)
[2022-10-29 15:20] LABS: BILIRUBIN,URINE NEGATIVE (Neg); CLARITY,URINE SLIGHTLY CLOUDY (Clear); COLOR,URINE YELLOW (Yellow); GLUCOSE, URINE NEGATIVE (Neg); KETONES,URINE 15 mg/dl (Neg); LEUKOCYTE ESTERASE ,URINE NEGATIVE (Neg); NITRITES, URINE NEGATIVE (Neg); OCCULT BLOOD,URINE NEGATIVE (Neg); PH,URINE 6.5 (4.8-8.0); PROTEIN,URINE NEGATIVE (Neg)
[2022-10-29 15:34] VITALS: BP 96/67; PULSE 68; RESP 16; TEMP 97.4; O2SAT 97
[2022-10-29 15:47] LABS: UA COLLECTION TYPE CLN CATCH MIDSTREAM
[2022-10-29 15:53] LABS: AMORPHOUS URATES 1+; BACTERIA,URINE NONE SEEN /HPF (Neg); RBC,URINE NONE SEEN /HPF (0-2); SQUAMOUS EPITHELIAL CELL,UR FEW /LPF (FEW); WBC,URINE 0-4 /HPF (0-4)
== END 2022-10-29 20:45 | disposition left against medical advice (07) ==
LOC: ER 12:32
DX: R53.1 Weakness (principal); Z53.21 Procedure and treatment not carried out due to patient leaving prior to being seen by health care provider
CPT/HCPCS: 36415; 71045; 80053; 81001; 83880; 84484; 85025; 93005; 99281; 99285

== ENCOUNTER 2023-03-10 15:03 | Emergency (ER) | payer MEDICARE ==
[~2023-03-10] VITALS: Ht 182.9 cm; Wt 77.3 kg
[~2023-03-10 15:03] MED LIST changes: -FOLI1TAB27 PO; -LORA-268 PO; -NALT50TA PO; -NICO-631 TD; +NITR0.4T51 SL
[2023-03-10 15:56] LABS: BASOPHILS # (AUTO) 0.1 X10'3 (0-0.2); BASOPHILS % (AUTO) 1.4 % (0-1); EOSINOPHILS # (AUTO) 0.3 X10'3 (0-0.9); EOSINOPHILS % (AUTO) 4.9 % (0-6); HEMATOCRIT 31.1 % (42.0-52.0); HEMOGLOBIN 10.7 g/dl (14.0-17.9); LYMPHOCYTES # (AUTO) 2.5 X10'3 (1.1-4.8); LYMPHOCYTES % (AUTO) 36.2 % (21-51); MEAN CORPUSCULAR HEMOGLOBIN 33.6 PG (27.0-31.0); MEAN CORPUSCULAR HGB CONC 34.2 g/dL (33.0-36.5); MEAN CORPUSCULAR VOLUME 98.4 FL (78-98); MEAN PLATELET VOLUME 7.3 FL (7.4-10.4); MONOCYTES % (AUTO) 14.6 % (2-12); NEUTROPHILS # (AUTO) 2.9 X10'3 (1.8-7.7); NEUTROPHILS % (AUTO) 42.9 % (42-75); PLATELET COUNT 201 X10'3 (140-440); RED BLOOD COUNT 3.17 X10'6 (4.70-6.10); RED CELL DISTRIBUTION WIDTH 13.5 % (11.5-14.5); WHITE BLOOD COUNT 6.8 X10'3 (4.5-11.0)
[2023-03-10 16:15] LABS: ALANINE AMINOTRANSFERASE 25 U/L (12-78); ALBUMIN 2.4 G/DL (3.4-5.0); ALBUMIN/GLOBULIN RATIO 0.4 (1.1-1.5); ALKALINE PHOSPHATASE 105 IU/L (46-116); ANION GAP 8 (8-16); ASPARTATE AMINO TRANSFERASE 29 U/L (10-37); BILIRUBIN,TOTAL 0.5 MG/DL (0.1-1.0); BLOOD UREA NITROGEN 9 MG/DL (7-18); BUN/CREATININE RATIO 11.4 (10.0-20.0); CALCIUM 8.8 MG/DL (8.5-10.1); CHLORIDE 97 MMOL/L (99-107); CREATININE 0.79 MG/DL (0.60-1.10); GLUCOSE 94 MG/DL (70-104); POTASSIUM 4.2 MMOL/L (3.5-5.1); SODIUM 131 MMOL/L (135-145); TOTAL CARBON DIOXIDE 25.7 MMOL/L (24-32); TOTAL PROTEIN 7.9 G/DL (6.4-8.2); eCRCL 99 ML/MIN; eGFR > 90 ML/MIN
[2023-03-10 16:24] LABS: PRO BRAIN NATRIURETIC PEPTIDE 342 PG/ML (0-125)
[2023-03-10] MEDS ORDERED: normal saline 1000ML IV soln IVB ONE (17:05)
[2023-03-10 17:19] LABS: MAGNESIUM 1.6 MG/DL (1.5-2.4)
[2023-03-10 18:41] LABS: BILIRUBIN,URINE NEGATIVE (Neg); CLARITY,URINE CLEAR (Clear); COLOR,URINE STRAW (Yellow); GLUCOSE, URINE NEGATIVE (Neg); KETONES,URINE NEGATIVE (Neg); LEUKOCYTE ESTERASE ,URINE NEGATIVE (Neg); NITRITES, URINE NEGATIVE (Neg); OCCULT BLOOD,URINE NEGATIVE (Neg); PH,URINE 6.5 (4.8-8.0); PROTEIN,URINE NEGATIVE (Neg); UROBILINOGEN,URINE 0.2 E.U/dL (0.2-1.0)
[2023-03-10 18:46] LABS: UA COLLECTION TYPE STRAIGHT CATH
[2023-03-10 22:12] VITALS: BP 110/59; PULSE 62; RESP 16; TEMP 98.1; O2SAT 96
== END 2023-03-10 22:15 | disposition home or self-care (01) ==
LOC: ER 15:04
DX: I95.9 Hypotension, unspecified (principal); K72.90 Hepatic failure, unspecified without coma; E86.0 Dehydration; E78.00 Pure hypercholesterolemia, unspecified; I10 Essential (primary) hypertension; Z91.09 Other allergy status, other than to drugs and biological substances; Z79.899 Other long term (current) drug therapy; Z79.2 Long term (current) use of antibiotics; Z79.1 Long term (current) use of non-steroidal anti-inflammatories (NSAID)
CPT/HCPCS: 36415; 71045; 80053; 81003; 83735; 83880; 84484; 85025; 93005; 96360; 99285; J7030

== ENCOUNTER 2023-03-24 13:33 | Emergency (ER) | payer MEDICARE ==
[~2023-03-24] VITALS: Ht 160 cm; Wt 50.0 kg
[2023-03-24 16:48] LABS: BASOPHILS # (AUTO) 0.1 X10'3 (0-0.2); BASOPHILS % (AUTO) 1.4 % (0-1); EOSINOPHILS # (AUTO) 0.4 X10'3 (0-0.9); EOSINOPHILS % (AUTO) 4.7 % (0-6); HEMATOCRIT 31.5 % (42.0-52.0); HEMOGLOBIN 10.9 g/dl (14.0-17.9); LYMPHOCYTES % (AUTO) 34.3 % (21-51); MEAN CORPUSCULAR HGB CONC 34.4 g/dL (33.0-36.5); MEAN CORPUSCULAR VOLUME 95.9 FL (78-98); MEAN PLATELET VOLUME 6.5 FL (7.4-10.4); MONOCYTES # (AUTO) 1.1 X10'3 (0-0.9); MONOCYTES % (AUTO) 12.5 % (2-12); NEUTROPHILS # (AUTO) 4.2 X10'3 (1.8-7.7); NEUTROPHILS % (AUTO) 47.1 % (42-75); PLATELET COUNT 209 X10'3 (140-440); RED BLOOD COUNT 3.29 X10'6 (4.70-6.10); RED CELL DISTRIBUTION WIDTH 13.7 % (11.5-14.5); WHITE BLOOD COUNT 8.9 X10'3 (4.5-11.0)
[2023-03-24 17:13] LABS: ALBUMIN 2.5 G/DL (3.4-5.0); ANION GAP 7 (8-16); BLOOD UREA NITROGEN 10 MG/DL (7-18); BUN/CREATININE RATIO 16.7 (10.0-20.0); CALCIUM 8.4 MG/DL (8.5-10.1); CHLORIDE 96 MMOL/L (99-107); GLUCOSE 91 MG/DL (70-104); POTASSIUM 4.6 MMOL/L (3.5-5.1); SODIUM 127 MMOL/L (135-145); TOTAL CARBON DIOXIDE 23.6 MMOL/L (24-32); eCRCL 84 ML/MIN; eGFR > 90 ML/MIN
[2023-03-24 17:16] LABS: PRO BRAIN NATRIURETIC PEPTIDE 568 PG/ML (0-125)
[2023-03-24 21:26] LABS: BILIRUBIN,URINE NEGATIVE (Neg); CLARITY,URINE CLEAR (Clear); COLOR,URINE YELLOW (Yellow); GLUCOSE, URINE NEGATIVE (Neg); KETONES,URINE NEGATIVE (Neg); LEUKOCYTE ESTERASE ,URINE NEGATIVE (Neg); NITRITES, URINE NEGATIVE (Neg); OCCULT BLOOD,URINE NEGATIVE (Neg); PROTEIN,URINE NEGATIVE (Neg); UROBILINOGEN,URINE 0.2 E.U/dL (0.2-1.0)
[2023-03-24 21:33] LABS: UA COLLECTION TYPE CLN CATCH MIDSTREAM
[2023-03-24 22:51] VITALS: BP 107/70; PULSE 63; RESP 16; TEMP 97.7; O2SAT 99
== END 2023-03-24 22:54 | disposition home or self-care (01) ==
LOC: ER 13:34
DX: E86.0 Dehydration (principal); E78.00 Pure hypercholesterolemia, unspecified; I10 Essential (primary) hypertension; Z91.09 Other allergy status, other than to drugs and biological substances; Z79.899 Other long term (current) drug therapy; Z79.2 Long term (current) use of antibiotics; Z79.1 Long term (current) use of non-steroidal anti-inflammatories (NSAID)
CPT/HCPCS: 36415; 71045; 80048; 81003; 83880; 84484; 85025; 93005; 99285; J7030